=== PATIENT | male | born 1960 | race Two or more races ===

== ENCOUNTER 2024-06-06 16:30 | Emergency (ER) | payer SELFPAY ==
[~2024-06-06] VITALS: Ht 165.1 cm; Wt 81.8 kg
[2024-06-06 16:30] VITALS: BP 168/71; RESP 20; O2SAT 99
[2024-06-06 16:32] VITALS: PULSE 64
[2024-06-06 17:35] LABS: Basophils # (auto) 0 10 ^3/uL (0-0.2); Basophils % (auto) 0.2 % (0.0-2.0); Eosinophils # (auto) 0 10 ^3/uL (0-0.8); Eosinophils % (auto) 0.2 % (0.0-7.0); Hematocrit 42.1 % (41.0-53.0); Hemoglobin 14.4 g/dL (13.5-17.5); Lymphocytes # (auto) 1.5 10 ^3/uL (0.4-5.4); Lymphocytes % (auto) 26.5 % (10.0-50.0); Mean Corpuscular Hemoglobin 29.7 pg (28.0-32.0); Mean Corpuscular Hgb Conc. 34.3 g/dL (32.0-36.0); Mean Corpuscular Volume 86.6 fL (80.0-100.0); Monocytes # (auto) 0.5 10 ^3/uL (0-1.3); Neutrophils # (auto) 3.8 10 ^3/uL (1.6-8.6); Neutrophils % (auto) 65.1 % (37.0-80.0); Nucleated Red Blood Cells % 0.1 %; Platelet Count (auto) 114 10^3/uL (140-450); Red Blood Cells 4.86 10^6/uL (4.5-5.90); White Blood Cell 5.8 10^3/uL (4.4-10.8)
[2024-06-06 17:54] LABS: Alanine Aminotransferase 21 U/L (7-40); Albumin 3.9 g/dL (3.2-4.8); Alkaline Phosphatase 54 U/L (46-116); Anion Gap 7 (5-15); Aspartate Aminotransferase 71 U/L (13-40); BUN/Creatinine Ratio 15.9 (10.0-20.0); Bilirubin, Total 0.6 mg/dL (0.2-1.0); Blood Urea Nitrogen 11 mg/dL (9-23); Calcium 9.2 mg/dL (8.7-10.4); Carbon Dioxide 23 mmol/L (20-30); Chloride 105 mmol/L (98-107); Glucose 93 mg/dL (74-106); Potassium 3.7 mmol/L (3.5-5.1); Sodium 135 mmol/L (136-145); Total Protein 7.6 g/dL (5.7-8.2)
== END 2024-06-06 18:50 | disposition home or self-care (01) ==
LOC: EDBD 16:30 → ER 16:30
DX: R53.1 Weakness (principal); E78.5 Hyperlipidemia, unspecified; I10 Essential (primary) hypertension; Z66 Do not resuscitate; Z88.0 Allergy status to penicillin; Z98.890 Other specified postprocedural states
CPT/HCPCS: 36415; 80053; 84484; 85025; 93005